=== PATIENT | male | born 1985 | race Caucasian/White ===

== ENCOUNTER 2019-08-17 13:53 | Emergency (ER) | payer OTHER ==
[~2019-08-17] VITALS: Ht 177.8 cm; Wt 75.8 kg
[2019-08-17 14:27] LABS: ABSOLUTE NEUTROPHILS 5.3 thou/uL (1.4-8.2); BASOPHILS 0.5 % (0.0-2.0); EOSINOPHILS 0.2 % (0.0-3.0); HEMATOCRIT 48.5 % (42.0-52.0); HEMOGLOBIN 16.8 gm/dL (14.0-18.0); MCH 33.2 pg (26.0-34.0); MCHC 34.6 g/dL (28.0-37.0); MCV 95.9 fL (80.0-100.0); PLATELET COUNT 187 thou/uL (150-400); POLYS 80.3 % (36.0-66.0); RBC 5.06 mil/uL (4.50-6.00); RDW 13.1 % (10.5-14.5); WBC 6.6 thou/uL (4.0-11.0)
[2019-08-17 14:33] LABS: ANION GAP 6 mmol/L (7-16); BUN 14 mg/dL (7-18); CALCIUM 8.7 mg/dL (8.5-10.1); CHLORIDE 93 mmol/L (98-107); CO2 29 mmol/L (21-32); CREATININE 0.8 mg/dL (0.7-1.3); GLUCOSE 124 mg/dL (74-106); POTASSIUM 3.5 mmol/L (3.5-5.1); SODIUM 128 mmol/L (136-145)
[2019-08-17 14:44] LABS: SGOT 47 U/L (15-37); SGPT 59 U/L (30-65); TOTAL BILIRUBIN 0.6 mg/dL (0.2-1.0); TOTAL PROTEIN 7.9 g/dL (6.4-8.2); TROPONIN-I <0.06 ng/mL (<0.06)
[2019-08-17 15:50] VITALS: BP 135/92
--- NOTE | 2019-08-17 16:13 | EKG ---
[facility] [place] [address] ELECTROCARDIOGRAM REPORT Name: DORA CAMPUZANO Room #: DEP [facility]..#: [id number] Admission: 08/17/19 Attend Phys: Discharge: 08/17/19 Date of : 83 Report #: [id number] THIS REPORT FOR: cc: ADELSO - Colette family physician/PCP ADELSO - Colette family physician/PCP Nasir Crocker MD [facility] THIS REPORT FOR: //name// [facility] ED Test Date: 2019-08-17 Test Time: 13:55:32 Pat Name: DORA HENDRIX Department: Room: Gender: Canvas Cutter Hand: EDILMA : 1985 Requested By: Kely Duncan Order Number: [id number] MD: Nasir Crocker Measurements Intervals [place] Rate: 102 P: 76 OR: 137 QRS: 3 QRSD: 87 T: 33 QT: 333 QTc: 434 Interpretive Statements Sinus tachycardia Consider left ventricular hypertrophy No previous ECG available for comparison Electronically Signed On 08-17-2019 16:11:59 CDT by Nasir Crocker [email or web address] <ELECTRONICALLY SIGNED> By: Nasir Crocker MD, FAC 08/17/19 161 135 54 Nasir Crocker MD, [facility] /EPI
== END 2019-08-17 15:50 | disposition home or self-care (01) ==
LOC: ER 13:53
PROVIDERS: Emergency Medicine
DX: R07.89 Other chest pain (principal); R00.0 Tachycardia, unspecified